=== PATIENT | male | born 1965 | race Caucasian/White ===

== ENCOUNTER 2020-04-03 07:38 | Inpatient (IN) | payer BC ==
[~2020-04-03] VITALS: Ht 177.8 cm; Wt 79.3 kg
[~2020-04-03 07:38] MED LIST: DELTASONE20 MG PO; LIPITOR20 MG PO; NORCO 10-325 T1 EACH PO; PERCOCET 5-3251 EACH PO
--- NOTE | 2020-04-04 06:18 | CONS ---
[facility] [address] [place], [place] [address] Signed DATE OF CONSULTATION: 04/03/2020 REFERRING PHYSICIAN: ER physician. CHIEF COMPLAINT: Right upper quadrant abdominal pain. HISTORY OF PRESENT ILLNESS: Yusuf is a 55-year-old gentleman who had undergone a screening colonoscopy back in 2017 by myself. We found just a minimal sigmoid diverticulosis. However about a year ago, he started developing some vague right upper quadrant abdominal pain. It has been getting progressively worse. He has been getting waves of crampy abdominal pain associated with some nausea. He finally came to emergency room for evaluation. 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 In the emergency room, he was tender in the right upper quadrant with unremarkable labs. The CT scan of the abdomen and pelvis was performed and he has an apple-core lesion in the distal right colon. No obvious lesions in the liver. Consequently, I was asked to admit him as a general surgeon on-call. PAST MEDICAL HISTORY: Minimal sigmoid diverticulosis and hypercholesterolemia. PAST SURGICAL HISTORY: Includes a colonoscopy in 2017, the right index finger partial amputation and appendectomy through a right paramedian incision and the right hip labral repair along with hemorrhoid surgery and a cervical disk fusion. SOCIAL HISTORY: He does not smoke, but he has occasional drink. He is to [place] at [phone]. 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 He prefers the [facility] here in [place], [place]. Dr. Fortunato Au is primary care provider. He has at least one daughter. FAMILY HISTORY: He is adopted and has no idea of his biologic family. REVIEW OF SYSTEMS: He had 10 systems reviewed and he told me about the right hip surgery that he had and he has been a year off work. He is with his today and she is in a wheelchair because her MS is getting worse. His daughter is also with him. ALLERGIES: Codeine. Electronically Signed By: NOY BHAGAT MD 04/04/20 0618 PATIENT NAME: YUSUF CRYSTAL CONSULTATION DATE OF : 63 REPORT #: [id number] PHYSICIAN: NOY BHAGAT MD PCP: FORTUNATO AU DO REPORT IS CONFIDENTIAL AND NOT TO BE RELEASED WITHOUT AUTHORIZATION [facility] [address] [place], [place] [address] Signed MEDICATIONS: Atorvastatin. PHYSICAL EXAMINATION: VITAL SIGNS: His blood pressure is 141/79, heart rate 64, respiratory rate 16, temperature is 98.0, he is 100% on room air. He is 5 feet 10 inches at 79 kg. GENERAL: Yusuf is a 55-year-old gentleman, who generally appears healthy and at his stated age. He is a good historian overall. His and daughter with him today. LUNGS: Clear to auscultation bilaterally. HEART: Regular rate and rhythm. ABDOMEN: Generally soft and flat, but he is tender in the right upper quadrant and I can feel the side of the mass to palpation. LABORATORY DATA: His white blood cell count is 7, hemoglobin 15, BUN 12, creatinine 1.0. Liver function tests negative. Troponin negative, albumin 4.2, lipase negative, COVID is pending. RADIOGRAPHIC STUDIES: The CT scan of the abdomen and pelvis is reviewed along with the report, one can easily see the dilated right colon and then apple-core lesion in the distal right colon. The liver does not appear to have any obvious lesions. Possible small lesion in the lung. ASSESSMENT/PLAN: Yusuf is a 55-year-old gentleman who presents with an apple-core lesion in his distal right colon. I reviewed this with Yusuf and his family in detail and of course most likely this is cancer. We are going to do our best to put him through our routine bowel prep today and repeat colonoscopy tomorrow. Mainly to rule out any synchronous lesions, but also to obtain some biopsies of that lesion in the distal right colon and then within the next day or two after that, he will need a formal right colectomy. He is very aware of colonoscopy along with its risks and benefits. He is aware of the need for sedation as well. We had also talked about the surgery in some detail as well. They have expressed understanding and agreed to above plan. Noy Bhagat MD ALB/MODL /[id number] Electronically Signed By: NOY BHAGAT MD 04/04/20 0618 PATIENT NAME: YUSUF CRYSTAL CONSULTATION DATE OF : 63 REPORT #: [id number] PHYSICIAN: NOY BHAGAT MD PCP: FORTUNATO AU DO REPORT IS CONFIDENTIAL AND NOT TO BE RELEASED WITHOUT AUTHORIZATION [address] [address] Signed cc: MD Fortunato Mae DO Copies: NOY BHAGAT MD, FRANK E DO ~ Electronically Signed By: NOY BHAGAT MD 04/04/20 0618 PATIENT NAME: YUSUF CRYSTAL CONSULTATION DATE OF : 63 REPORT #: [id number] PHYSICIAN: NOY BHAGAT MD PCP: FORTUNATO AU DO REPORT IS CONFIDENTIAL AND NOT TO BE RELEASED WITHOUT AUTHORIZATION
--- NOTE | 2020-04-05 06:41 | OR ---
[facility] [address] [place], [place] [address] Signed DATE OF OPERATION: 04/04/2020 SURGEON: Noy Bhagat MD PREOPERATIVE DIAGNOSES: 1. Unspecified mass, distal right colon. 2. Minimal sigmoid diverticulosis. POSTOPERATIVE DIAGNOSES: 1. Unspecified mass, distal right colon. 2. Minimal sigmoid diverticulosis. PROCEDURE: Colonoscopy with cold biopsies. ESTIMATED BLOOD LOSS: None. INDICATIONS: Yusuf is a 55-year-old gentleman, who came to us back in 2017 for a screening colonoscopy. He had a little diverticulosis at that time. 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 About a year ago, he started to develop right upper quadrant abdominal pain. There was some concern that could be the gallbladder; however, the pain was getting worse, and he was getting crampy waves of abdominal pain as well. It was getting worse after he ate. He finally came to the emergency room for evaluation yesterday. His laboratory work was not particularly concerning. The CT scan of the abdomen and pelvis showed an apple-core lesion in the distal right colon with unremarkable liver. I was asked to admit him as a general surgeon on-call. I met with Yusuf and his and his daughter yesterday, and we reviewed the above findings. We decided to repeat the colonoscopy since it has been three years to make sure there is no synchronous lesions distal to his apple-core lesion. He vomited up probably half the prep, but otherwise had multiple liquid bowel movements. This morning, I could tell on abdominal exam, his distention was gone and overall he is actually feeling better. He is fully aware of colonoscopy. He understands risks of colonoscopy including, but not limited to gas bloating, crampy abdominal pain, bleeding, perforation requiring surgery, and missed diagnosis. He had done well with Versed and fentanyl back in 2017. He had expressed understanding and wished to proceed. PROCEDURE NOTE: Electronically Signed By: NOY BHAGAT MD 04/05/20 0641 PATIENT NAME: YUSUF CRYSTAL OPERATIVE REPORT DATE OF : 63 REPORT #: [id number] PHYSICIAN: NOY BHAGAT MD PCP: MARCO AU DO REPORT IS CONFIDENTIAL AND NOT TO BE RELEASED WITHOUT AUTHORIZATION [facility] [address] [place] [id number] Signed Yusuf was taken into our endoscopy suite and placed in the left lateral decubitus position. He was given IV sedation with 5 mg of Versed and 125 mcg of fentanyl. A digital rectal exam was performed and this was unremarkable. The adult colonoscope was introduced and advanced under direct visualization of the camera. He did have some liquid particulate stool matter in the colon, but most of that was irrigated and suctioned out. There was just a few years we could see the completely. The scope passed readily, then around to the hepatic flexure. Again, we had to use some extra sedation and abdominal compression in order to advance the scope. As we came around hepatic flexure, then we could see his circumferential lesion. The opening in the lumen was too small to pass the colonoscope through. We took multiple pictures throughout for photodocumentation. We took several cold biopsies of the lesion for pathologic review. The scope was then slowly withdrawn. We found no other concerning lesions in the transverse, left or sigmoid colon. He does have a few small diverticula in the sigmoid colon. The rectum was unremarkable. Upon retroflexion of scope, we could see no additional pathology noted above the anal canal. After this, the gas was suctioned out, the colonoscope removed. Yusuf tolerated the procedure quite well. RECOMMENDATIONS: Yusuf will be returned to his hospital bed today on clear liquids. We will plan on doing his right colectomy either tomorrow or the next day. Noy Bhagat MD [facility]/MODL /[id number] cc: DO Noy Llamas MD Copies: MARCO AU ANDREW L MD ~ Electronically Signed By: NOY BHAGAT MD 04/05/20 0641 PATIENT NAME: YUSUF CRYSTAL OPERATIVE REPORT DATE OF : 63 REPORT #: [id number] PHYSICIAN: NOY BHAGAT MD PCP: MARCO AU DO REPORT IS CONFIDENTIAL AND NOT TO BE RELEASED WITHOUT AUTHORIZATION
--- NOTE | 2020-04-06 05:54 | OR ---
[facility] [facility] [address] [place], [place] [address] Signed DATE OF OPERATION: 04/05/2020 SURGEON: Noy Bhagat MD PREOPERATIVE DIAGNOSIS: Unspecified mass, right distal colon. POSTOPERATIVE DIAGNOSIS: Unspecified mass, mid right colon. PROCEDURE: Right colectomy with zipo-gc-cylk ileocolonic anastomosis, hand-sewn in two layers. ESTIMATED BLOOD LOSS: 250 mL. FINDINGS: Yusuf had a colonic mass in his mid right colon. It was not adherent to any other structures including abdominal wall or the retroperitoneum. No lesions seen or felt on the liver. No lesions felt or seen on the mesentery or omentum. INDICATIONS: Yusuf is a 55-year-old gentleman who came in 2017 for uncomplicated screening colonoscopy. He is known to have a little diverticulosis. He did undergo surgery on the right hip for torn labrum. It put him out of work for about a year. Over that year, he was having right upper quadrant abdominal pain that seemed to be getting progressively worse. However, he was also having crampy ways of abdominal pain associated with nausea. He knows it is worse when he was eating. There was some concern that could be his gallbladder. He finally came to emergency room for evaluation. In the emergency room, he was not systemically ill or toxic and his laboratory work was unremarkable. However, the CT scan showed an apple-core lesion in the distal right colon. The liver did not show any specific lesions. I have been asked to admit him as a general surgeon on-call. I met with Yusuf and his and daughter and reviewed the above findings. We put him through a bowel prep on the day of admission. The next day, we took him for a followup colonoscopy mainly to rule out any synchronous lesions in the distal colon. We encountered his circumferential mass in what we thought was the distal right colon. We had taken several biopsies for pathologic review along with pictures. We did not find any specific synchronous lesions distal in the transverse colon, left colon, sigmoid colon or rectum. Of course he does have minimal sigmoid diverticulosis. The following morning, then, we made arrangements Electronically Signed By: NOY BHAGAT MD 04/06/20 0554 PATIENT NAME: MARAHYUSUFMelissa ALARCON OPERATIVE REPORT DATE OF : 63 REPORT #: [id number] PHYSICIAN: NOY BHAGAT MD PCP: FORTUNATO AU DO REPORT IS CONFIDENTIAL AND NOT TO BE RELEASED WITHOUT AUTHORIZATION [facility] [address] [place] [address] Signed to bring him down to OR for standard right colectomy. I gave him a brochure on colorectal polyps and cancer. We looked at that carefully together. I reviewed with him the location of this tumor and the pictures associated with the right colectomy. I explained that we had to take all the blood vessels in the lymph nodes for pathologic review. In the meantime, his CEA level came back normal at 0.687. I reviewed with Yusuf the expected intraop and postop course. He understands there is risk to surgery including, but not limited to bleeding, infection, scarring, change in contour of the skin, damage to bowel, anastomotic leak, incisional hernias and other unforeseen comorbidities. He had expressed understanding and wished to proceed. PROCEDURE NOTE: I had met with Yusuf once again in our preop area. After answering his questions, he was taken in the operating room and placed in the supine position under general endotracheal tube anesthesia. He was given preoperative antibiotics. He was already on subcutaneous Lovenox. He had SCDs in place. A Lao catheter was inserted with return of clear yellow urine. He was then prepped and draped in the usual sterile fashion. On this occasion, I could not feel the mass after he was pharmacologically paralyzed. We utilized a standard periumbilical midline incision and carried that in the abdomen with the help of the cautery. We found a mass in the mid right colon, somewhat strictured, but not adherent to any surrounding structures including abdominal wall or the retroperitoneum. We did not see any lesions or feel any lesions on the liver. We did not see any lesions on the peritoneal surfaces nor the omentum. The omentum was not adherent to this lesion. He has undergone previous appendectomy through a right paramedian incision. There were no adhesions to that paramedian incision, but he had adhesions down around the terminal ileum and the cecum. It took a few extra minutes to get through those adhesions of the cautery and up the white line of Toldt and around the hepatic flexure over the midportion of the transverse colon. The entire specimen was rotated medially and up and out of the abdomen without difficulty. We divided the transverse colon midway between the hepatic flexure in the midportion of the transverse colon. This was done with a linear stapler. The mesocolon was divided between Pean clamps and 0 Vicryl ties. It took a little additional cautery to bring up the terminal ileum and the cecum from his previous adhesions from his remote appendectomy. We divided the terminal ileum between the linear stapler. On the last two Pean clamps, he had little bleeding. We oversewed that with 0 Vicryl suture. He developed a hematoma in the mesentery about the size of a tennis ball. That remained stable throughout the rest of the case. His terminal ileum also remained quite viable and well perfused and pink throughout the rest of the case. We passed the specimen off to our circulating nurse. It was opened on the back table for photodocumentation. We could easily see the ulcerated lesion in the mid right colon. After this, we closed the mesenteric rent with running 0 Vicryl suture. Because of the hematoma and his somewhat short mesentery due to his body habitus, we brought the ileum up to the transverse colon in a vncr-[id number]-dhzb fashion. We performed a standard two-layered anastomosis with Vicryl and silk sutures. Electronically Signed By: NOY BHAGAT MD 04/06/20 0554 PATIENT NAME: YUSUF CRYSTAL OPERATIVE REPORT DATE OF : 63 REPORT #: [id number] PHYSICIAN: NOY BHAGAT MD PCP: FORTUNATO AU DO REPORT IS CONFIDENTIAL AND NOT TO BE RELEASED WITHOUT AUTHORIZATION [facility] [address] [place], [place] [address] Signed We then inverted into the terminal ileum with a couple of silk sutures the staple line. Again, we checked the hematoma and it had not changed in size. The abdomen was then irrigated and suctioned out until clear. We were able to place the small bowel and colon back in the abdomen and it laid out quite nicely without any kinking. We brought the omentum back down over the bowel. The midline fascia was then closed with multiple interrupted #1 spyame-ls-phica PDS sutures. Local anesthetic was injected to the abdominal wall. The wound was irrigated and suctioned out until clear. We reapproximated the dermis with interrupted 3-0 subcuticular Monocryl sutures. The skin was then reapproximated with destiny. Dry gauze and tape were then applied. His Lao catheter was left in place. Yusuf was awakened from his anesthesia, extubated in the OR, and taken to recovery room in stable condition. Noy Bhagat MD ALB/MODL /[id number] cc: Fortunato Au DO Copies: FORTUNATO AU DO ~ Electronically Signed By: NOY BHAGAT MD 04/06/20 0554 PATIENT NAME: YUSUF CRYSTAL OPERATIVE REPORT DATE OF : 63 REPORT #: [id number] PHYSICIAN: NOY BHAGAT MD PCP: FORTUNATO AU DO REPORT IS CONFIDENTIAL AND NOT TO BE RELEASED WITHOUT AUTHORIZATION
--- NOTE | 2020-04-11 09:14 | PATH ---
[facility] [address] [facility] [place], [place] [address] Signed THIS IS AN ADDENDUM REPORT SPECIMEN(S): A ASCENDING COLON BIOPSY SPECIMEN SOURCE: A. ASCENDING COLON BIOPSY CLINICAL HISTORY: Apple core lesion, right colon; colon cancer. MICROSCOPIC DESCRIPTION: Histologic sections of all submitted blocks are examined by light microscopy. These findings, together with the gross examination, support the pathologic diagnosis. FINAL PATHOLOGIC DIAGNOSIS: Colon, ascending, biopsy: - Invasive adenocarcinoma, well differentiated. COMMENT: Screening for microsatellite instability by immunohistochemistry has been ordered and will be reported in an addendum. A diagnostic alert is initiated by Dr. Ibarra on April 10, 2020. As part of [facility]' Quality Improvement Program, this case was reviewed by another member of our pathology staff. BRP:NAL:smn:C1NR GROSS DESCRIPTION: The specimen, labeled "DR," and designated on the requisition "ascending colon biopsy," is received in formalin and consists of four fragments of pink-mccracken tissue (0.6 x 0.5 x 0.2 cm in aggregate). The specimen is submitted entirely in cassette (A1). AC (under the direct supervision of a pathologist) The Gross Description was prepared using a voice recognition system. The report was reviewed for accuracy; however, sound-alike word errors, addition and/or deletions may occur. If there is any question about this report, please contact Client Services. PERFORMING LABORATORY: The technical component was performed by [facility], [address] [place] [id number] (Pig Caster: Cristina Zhou MD; CLIA# [id number]). [facility] PATIENT NAME: YUSUF CRYSTAL PATHOLOGY DATE OF : 63 REPORT #: [id number] PHYSICIAN: THAOBkam PATHOLOGY PCP: MARCO AU DO REPORT IS CONFIDENTIAL AND NOT TO BE RELEASED WITHOUT AUTHORIZATION [facility] [address] [place] [id number] [place] [id number] [place] [address] (CLIA# [id number]). COMMENT: Tumor cells show no loss of nuclear expression of MMR proteins. This correlates with a low probability of microsatellite instability. However, if there is a high clinical suspicion for Alcocer syndrome (hereditary non-polyposis colorectal carcinoma syndrome) in this patient, additional testing should be considered. Please contact [facility] if such testing is indicated. BRP:vera ADDITIONAL NOTES: Immunohistochemical and/or in situ hybridization studies were performed on this case with the appropriate positive controls that react as expected. This test was developed and its performance characteristics determined by [facility]. It has not been cleared or approved by the U.S. Food and Drug Administration. The FDA has determined that such clearance or approval is not necessary. This test is used for clinical purposes. It should not be regarded as investigational or for research. [facility] is certified under the Clinical Laboratory Improvement Amendments of 1988 (CLIA) as qualified to perform high complexity clinical laboratory testing. REASON FOR ADDENDUM: To add results of additional testing. ADDENDUM FINAL PATHOLOGIC DIAGNOSIS: Adenocarcinoma, ascending colon, microsatellite instability testing by IHC: - MLH1: Intact nuclear expression. - MSH2: Intact nuclear expression. - MSH6: Intact nuclear expression. - PMS2: Intact nuclear expression. INTERPRETATION: Normal pattern. ADDENDUM MICROSCOPIC EXAMINATION: A panel of four antibodies is selected which will detect 95% of microsatellite unstable carcinomas. Block: A1. Recut HE slide is prepared from the block. The presence of neoplastic glands and non-neoplastic internal control glands or stroma is confirmed. Internal control cells for MLH1, MSH2, PMS2 and MSH6 are positive. PATIENT NAME: YUSUF CRYSTAL PATHOLOGY DATE OF : 63 REPORT #: [id number] PHYSICIAN: EUN PATHOLOGY PCP: MARCO AU DO REPORT IS CONFIDENTIAL AND NOT TO BE RELEASED WITHOUT AUTHORIZATION [facility] [address] [place], [place] [address] Signed Neoplastic gland cells show the following: - MLH1: Positive. - MSH2: Positive. - MSH6: Positive. - PMS2: Positive. Technical testing is performed at [facility], [place], [place]. Diagnostician: Jose Ibarra MD Pathologist Electronically Signed 04/11/2020 Copies: ~ PATIENT NAME: YUSUF CRYSTAL PATHOLOGY DATE OF : 63 REPORT #: [id number] PHYSICIAN: EUN JAUREGUI PCP: MARCO AU DO REPORT IS CONFIDENTIAL AND NOT TO BE RELEASED WITHOUT AUTHORIZATION
[2020-04-14] MEDS ORDERED: NORCO 5-325 TA1 EACH PO (07:48)
--- NOTE | 2020-04-14 08:46 | DS ---
[facility] [address] [place], [place] [address] Signed ADMISSION DATE: 04/03/2020 DISCHARGE DATE: 04/14/2020 FINAL DIAGNOSIS: Right colon cancer. PROCEDURES: 1. Colonoscopy with biopsies. 2. Right colectomy with hfgf-ze-focp hand-sewn anastomosis in two layers. 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 I performed his colonoscopy about three years ago. He came back at least a year of increasing right-sided crampy abdominal pain. In the emergency room, his laboratory work was unremarkable. However, the CT scan showed an apple-core lesion in the liver with an apple-core lesion in the right colon with an unremarkable liver. I admitted him to my service. HOSPITAL COURSE: We took Yusuf for colonoscopy the following day and we found the apple-core lesion consistent with the CT scan. He has minimal sigmoid diverticulosis. There were no synchronous lesions. Those endoscopic biopsies of come back adenocarcinoma. His CEA level was normal at 0.687. We took him to the operating room the following morning and underwent a standard right colectomy. We brought the bowel together nsyu-yi-dlym and hand-sewn anastomosis in two layers over about 3 cm. He also had just a small hematoma 3 or 4 cm in diameter in the small bowel mesentery of the terminal ileum as we were tying off the Pean clamps. That remained stable throughout the surgery. Consequently, we did not pursue it further. We did not resect additional bowel. Postoperatively, he began to regain his GI function. He had quite a bit crampy ways of abdominal pain. He was having gas and multiple liquid stools. It is possible that the anastomosis was a bit edematous. Last night especially he passed enormous amount of gas and he looks and feels much better. The abdomen is now minimally distended, quite soft, except for some tenderness in the right upper quadrant. He did drop his hemoglobin by 2 g. Consequently, we are going to recheck that this morning, but I think overall that is fine based on his clinical progress and his physical exam. The incision is healing fine. There are no local signs or symptoms of infection. At this point, he and I had a long discussion. He feels comfortable going home on his current soft diet. DISCHARGE PLANS AND MEDICATIONS: We will send Yusuf home with a small prescription for Compton 5 mg 1 tablet p.o. q.6 hours p.r.n. for severe pain. We will dispense 15 tablets with no refills. Otherwise, he can Electronically Signed By: NOY BHAGAT MD 04/14/20 0846 PATIENT NAME: YUSUF CRYSTAL DISCHARGE SUMMARY DATE OF : 63 REPORT #: [id number] PHYSICIAN: NOY BHAGAT MD PCP: FORTUNATO AU DO REPORT IS CONFIDENTIAL AND NOT TO BE RELEASED WITHOUT AUTHORIZATION [address] [address] Signed use some Tylenol or ibuprofen. He is welcome to resume his usual atorvastatin. He will stay on a soft diet for the next few weeks. One-half the destiny will be removed prior to discharge. I will see him back in the office in a week or so for followup and to remove the remaining destiny. In the meantime, he can perform his activities of daily living including walking up and down stairs and showering bathing as usual. He should not do any heavy pushing, pulling, or lifting over about 20 pounds. I reviewed this with Yusuf in detail. He has expressed understanding and agrees to above plan. Noy Bhagat MD ALB/MODL /[id number] cc: MD Fortunato Mae DO Copies: NOY BHAGAT MD, FRANK E DO ~ Electronically Signed By: NOY BHAGAT MD 04/14/20 0846 PATIENT NAME: YUSUF CRYSTAL DISCHARGE SUMMARY DATE OF : 63 REPORT #: [id number] PHYSICIAN: NOY BHAGAT MD PCP: FORTUNATO AU DO REPORT IS CONFIDENTIAL AND NOT TO BE RELEASED WITHOUT AUTHORIZATION
--- NOTE | 2020-04-14 09:43 | PATH ---
[facility] [address] [place], [place] [address] Signed SPECIMEN(S): A RIGHT COLON SPECIMEN SOURCE: A. RIGHT COLON CLINICAL HISTORY: Colon cancer (apple core lesion) FINAL PATHOLOGIC DIAGNOSIS: Ascending colon, cecum and terminal ileum, right hemicolectomy: - Invasive colonic adenocarcinoma with the following features: - Tumor site: Ascending colon - Tumor size: 3.2 x 2.6 x 1.7 cm. - Macroscopic tumor perforation: Not identified. - Histologic type: Adenocarcinoma. - Histologic grade: G2: Moderately differentiated. - Tumor extension: Tumor invades through the muscularis propria into pericolorectal tissue. - Margins: All margins are uninvolved by invasive carcinoma, high-grade dysplasia, intramucosal carcinoma and low-grade dysplasia (proximal, distal and radial margins). - Lymphovascular invasion: Present. - Perineural invasion: Not identified. - Tumor deposits: Present, 1 tumor deposit. - Regional lymph nodes: - Number of lymph nodes involved: 3 - Number of lymph nodes examined: 56 - Microsatellite Instability (MSI) Testing by Immunohistochemistry: Refer to previously performed testing ([id number], 04/04/2020), interpreted as Normal Pattern with the following expression pattern: - MLH1: Intact nuclear expression. - MSH2: Intact nuclear expression. - MSH6: Intact nuclear expression. - PMS2: Intact nuclear expression. - Pathologic stage classification (pTNM, AJCC 8th ed.): pT3 pN1b. - Ileum with thickened and congested subserosa. COMMENT: As part of [employer]' Quality Improvement Program, selected slides PATIENT NAME: YUSUF CRYSTAL PATHOLOGY DATE OF : 63 REPORT #: [id number] PHYSICIAN: EUN PATHOLOGY PCP: MARCO AU DO REPORT IS CONFIDENTIAL AND NOT TO BE RELEASED WITHOUT AUTHORIZATION [facility] [address] [place] [id number] Signed from this case were reviewed by another member of our pathology staff. BRAF mutation testing has not been ordered. If testing is desired, please contact [employer] with prior authorization if applicable. NAL:vlg:C1NR MICROSCOPIC EXAMINATION: Histologic sections of all submitted blocks are examined by light microscopy. These findings, together with the gross examination, support the pathologic diagnosis. GROSS DESCRIPTION: The specimen, labeled "Carine CHUNG," and designated on the requisition "right colon, colon cancer (apple core lesion)," is received in formalin and consists of a previously opened, 16.5 cm long, up to 9.3 cm diameter colonic segment with attached terminal ileum and adipose tissue up to 11.5 cm wide. An appendix or grossly definitive appendiceal orifice is not identified. The distal colon contains a 4.2 cm long staple line which is removed and the underlying tissue is inked blue. The proximal terminal ileum is closed by a 2.8 cm long staple line, edges removed and the underlying tissue is inked orange. The colonic serosa is mccracken, glistening, with focal, rare delicate adhesions. On the colonic mucosa contains an ill-defined, fungating, centrally ulcerative, 3.2 x 2.6 x 1.7 cm, mccracken to brown to red lesion that is 3.1 cm from the ileocecal valve, 9.2 cm from the distal colonic margin, 12.5 cm from the radial/vascular root margin which is inked red, and 15.8 cm from the proximal terminal ileum. The lesion grossly appears to invade through the mucosa, submucosa, muscularis, and into the attached adipose tissue up to 0.6 cm. The remaining colonic mucosa is slightly edematous, mccracken, and has usual folds. An additional discrete mass/lesion is not grossly identified. The terminal ileum is 12.5 cm long, 4.8 cm in circumference, and the serosa is mccracken, smooth and glistening. The terminal ileum mucosa is mccracken with usual folds and focally edematous. A discrete mass/lesion is not grossly identified. The attached adipose tissue is removed, sectioned, and palpated for lymph nodes. Sixty pink-mccracken lymph node candidates from 0.2 up to 3.0 cm in greatest dimension are found. Represented sections are submitted as follows: (A1-A2) radial/vascular margin en face PATIENT NAME: YUSUF CRYSTAL PATHOLOGY DATE OF : 63 REPORT #: [id number] PHYSICIAN: EUN JAUREGUI PCP: MARCO AU DO REPORT IS CONFIDENTIAL AND NOT TO BE RELEASED WITHOUT AUTHORIZATION [facility] [address] [place], [place] [address] Signed (A3-A4) distal colonic margin en face (A5) proximal terminal ileum margin en face (A6-A7) lesional invasion into attached adipose tissue (A8-A9) lesion to normal mucosa (A10) lesion (A11) remaining colonic mucosa (A12) ileocecal valve (A13) terminal ileum (A14) 5 lymph node candidates in toto (A15) 5 lymph node candidates in toto (A16) 5 lymph node candidates in toto (A17) 5 lymph node candidates in toto (A18) 5 lymph node candidates in toto (A19) 5 lymph node candidates in toto (A20) 5 lymph node candidates in toto (A21) 5 lymph node candidates in toto (A22) 4 lymph node candidates in toto (A23) 4 lymph and candidates in toto (A24) 4 lymph and candidates in toto (A25) 3 lymph node candidates in toto (A26) 2 lymph node candidates in toto (A27) one bivalved lymph node candidate (A28-A29) one bivalved lymph node candidate (A30-A32) one cross-sectioned lymph node candidate (possibly two lymph node candidates connected with fibrous tissue) AI (under the direct supervision of a pathologist) Per request by Dr. Evans, the case is revisited. The radial margin of the retroperitoneal non-peritonealized posterior surface is inked green and two construction sales representative sections of the lesion to the margin are submitted in two cassettes ( A33-A34) AI 04/12/20 12:17 The Gross Description was prepared using a voice recognition system. The report was reviewed for accuracy; however, sound-alike word errors, addition and/or deletions may occur. If there is any question about this report, please contact Client Services. PERFORMING LABORATORY: The technical component was performed by [employer], [address] [place] [id number] (Parts Casting Machine Operator: Cristina Zhou MD; CLIA# [id number]). Professional interpretation was performed by [employer], [facility], [address] [place] [address] [facility]. 107, PATIENT NAME: YUSUF CRYSTAL PATHOLOGY DATE OF : 63 REPORT #: [id number] PHYSICIAN: EUN PATHOLOGY PCP: MARCO AU DO REPORT IS CONFIDENTIAL AND NOT TO BE RELEASED WITHOUT AUTHORIZATION [facility] [address] [place] [address] [place] [id number] Signed [place] [id number] (CLIA# [id number]). Diagnostician: Shawna Evans MD Pathologist Electronically Signed 04/14/2020 Copies: ~ PATIENT NAME: YUSUF CRYSTAL PATHOLOGY DATE OF : 63 REPORT #: [id number] PHYSICIAN: EUN PATHOLOGY PCP: MARCO AU DO REPORT IS CONFIDENTIAL AND NOT TO BE RELEASED WITHOUT AUTHORIZATION
== END 2020-04-14 09:20 | disposition home or self-care (01) | DRG 330 ==
LOC: ED 07:38 → MS 07:40 → ED 11:00 → MS 11:00
PROVIDERS: ADMIT Colon & Rectal Surgery; ATTEND Colon & Rectal Surgery
PROC: 0DBF8ZX Excision of Right Large Intestine, Via Natural or Artificial Opening Endoscopic, Diagnostic (ICD-10-PCS; principal; 2020-04-04 10:45)
PROC: 0DTF0ZZ Resection of Right Large Intestine, Open Approach (ICD-10-PCS; 2020-04-05)
DX: C18.2 Malignant neoplasm of ascending colon (principal); K56.7 Ileus, unspecified; Z20.822 Contact with and (suspected) exposure to COVID-19; K57.30 Diverticulosis of large intestine without perforation or abscess without bleeding; Z79.899 Other long term (current) drug therapy; Z88.5 Allergy status to narcotic agent
CPT/HCPCS: 36415; 74018; 74177; 80048; 80053; 82378; 83690; 83735; 84100; 84484; 85025; 93005; 93010; 96374; 96375; 99153; 99285-25; 99406; C9113; G0378; G0500; J0131; J0330; J0690; J1100; J1170; J1650; J1885; J2250; J2270; J2405; J2550; J2704; J2765; J3010; J3480; J7060; J7121; Q9967; U0003

== ENCOUNTER 2020-05-10 07:25 | Day surgery (SDC) | payer BC ==
[~2020-05-10] VITALS: Ht 177.8 cm; Wt 72.7 kg
[~2020-05-10 07:25] MED LIST changes: +NORCO 5-325 TA1 EACH PO
--- NOTE | 2020-05-10 10:27 | NUR ---
05/10/20 Vibha7 Stacy Bey 1022-PATIENT ARRIVED TO PACU SLEEPING NONAROUSABLE ON 6L MASK RR EVEN. DRESSING TO RIGHT NECK CDI RIGHT CHEST DRESSING CDI. ST. IVF INFUSING.
[2020-05-10] MEDS ORDERED: HYDROCODON-ACE1 EAC8 PO (10:49)
--- NOTE | 2020-05-11 07:57 | OR ---
[facility] [address] [place], [place] [address] Signed DATE OF OPERATION: 05/10/2020 SURGEON: Noy Bhagat MD PREOPERATIVE DIAGNOSES: 1. Personal history of stage III colon cancer. 2. Status post right colectomy. POSTOPERATIVE DIAGNOSES: 1. Personal history of stage III colon cancer. 2. Status post right colectomy. PROCEDURES: 1. Placement of right IJ Fqjp-F-onogjmif. 2. Physician directed ultrasound. 3. Physician directed fluoroscopy. ESTIMATED BLOOD LOSS: None. INDICATIONS: Yusuf is a 55-year-old gentleman, who came to us previously with his stage 3 right-sided colon cancer. He required a right colectomy. He has met with his medical oncologist and is planning on chemotherapy. He therefore is in need of a Vbiz-I-sssnmmuh placement. I had met with Yusuf and his in the office. We had reviewed Ppkf-G-npqcanono in detail. His is familiar with Hxbk-Q-lkdatdszn from her friends. There is risk to that surgery including, but not limited to bleeding, infection, scarring, change in contour of the skin, pneumothorax requiring chest tube placement, as well as catheter embolization requiring retrieval. They had expressed understanding and wished to proceed. DESCRIPTION OF PROCEDURE: I met with Yusuf and his in our preop area. After answering the questions, we went back in our operating room. He was placed under monitored anesthesia care. He was put in the Trendelenburg position. He was given preoperative antibiotics along with subcutaneous heparin. SCDs were utilized. He was then prepped and draped in the usual sterile fashion. We used the ultrasound and we could easily visualize his right internal jugular vein. We injected local anesthetic and passed the needle directly into the internal jugular vein under direct visualization. The wire was able to be inserted without resistance and we checked the position of the wire with a fluoroscopy unit. We Electronically Signed By: NOY BHAGAT MD 05/11/20 0757 PATIENT NAME: YUSUF CRYSTAL OPERATIVE REPORT DATE OF : 63 REPORT #: [id number] PHYSICIAN: NOY BHAGAT MD PCP: MARCO AU DO REPORT IS CONFIDENTIAL AND NOT TO BE RELEASED WITHOUT AUTHORIZATION [facility] [address] [place], [place] [address] Signed then injected local underneath the skin down the neck and onto the right chest wall. A pocket was created on the right chest wall with the help of the cautery and Pean clamps. We then dilated over the wire and checked the position of the dilator with our fluoroscopy unit. The catheter was then inserted up to 14 cm at the level of the neck. The position of the catheter was checked with the fluoroscopy unit. We then tunneled the catheter underneath the skin out onto the chest wall. The catheter was cut the length and placed onto the hub. The catheter was able to flush and draw quite readily. We filled the catheter with 2 mL of concentrated heparin. The hub was held on the chest wall with interrupted Prolene sutures. The dermis was reapproximated with 3-0 subcuticular Monocryl sutures. We used a 5-0 Monocryl for the dermis on the neck. We used 5-0 fast absorbing plain gut suture to close the skin on the neck and the chest wall. The entire length of the catheter was checked once again and found to be satisfactory. Dry gauze and tape were then applied. Yusuf was transferred over to his hospital bed and taken into recovery room in stable condition. Noy Bhagat MD ALB/MODL /[id number] cc: DO James Llamas MD Andrew L Bower, MD Copies: MARCO AU ROBERT C MD BOWER, ANDREW L MD ~ Electronically Signed By: NOY BHAGAT MD 05/11/20 0757 PATIENT NAME: YUSUF CRYSTAL OPERATIVE REPORT DATE OF : 63 REPORT #: [id number] PHYSICIAN: NOY BHAGAT MD PCP: MARCO AU DO REPORT IS CONFIDENTIAL AND NOT TO BE RELEASED WITHOUT AUTHORIZATION
== END 2020-05-10 11:20 | disposition home or self-care (01) ==
LOC: DS 07:25
PROVIDERS: ATTEND Colon & Rectal Surgery
PROC: 02HV33Z Insertion of Infusion Device into Superior Vena Cava, Percutaneous Approach (ICD-10-PCS; 2020-05-10)
PROC: 0JH60WZ Insertion of Totally Implantable Vascular Access Device into Chest Subcutaneous Tissue and Fascia, Open Approach (ICD-10-PCS; principal; 2020-05-10 08:15)
DX: C18.2 Malignant neoplasm of ascending colon (principal); C77.2 Secondary and unspecified malignant neoplasm of intra-abdominal lymph nodes; E78.5 Hyperlipidemia, unspecified; F17.220 Nicotine dependence, chewing tobacco, uncomplicated; Z90.49 Acquired absence of other specified parts of digestive tract; Z88.5 Allergy status to narcotic agent; Z98.1 Arthrodesis status
CPT/HCPCS: 00532; 71045; 77001; C1788; J0690; J1100; J1644; J1885; J2001; J2250; J2405; J2704; J7121

== ENCOUNTER 2020-05-12 14:58 | Emergency (ER) | payer BC ==
[~2020-05-12] VITALS: Ht 177.8 cm; Wt 72.7 kg
[~2020-05-12 14:58] MED LIST changes: +HYDROCODON-ACE1 EAC8 PO
--- OUTSIDE RECORDS SUMMARY | 2020-05-12 15:00 | XMS ---
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 Kobe has no Care Guidelines for this patient. Higinio VISIT COUNT (12 MO.) 2 LEO Guevara TOTAL 2 NOTE: Visits indicate total known visits. ED/UCC VISIT TRACKING (12 MO.) 05/12/2020 14:58 [facility] [place] TYPE: Emergency COMPLAINT: - CONSTIPATION 04/03/2020 07:39 [facility] [place] TYPE: Emergency COMPLAINT: - COLON CANCER INPATIENT VISIT TRACKING (12 MO.) 04/03/2020 12:50 [facility] [place] TYPE: Medical Surgical COMPLAINT: - UNSPECIFIED COLON MASS DIAGNOSES: - Right upper quadrant pain - Ileus, unspecified - Other prison (current) drug therapy - Malignant neoplasm of ascending colon - Allergy status to narcotic agent - Diverticulosis of large intestine without perforation or abscess without bleeding [email or web address]
== END 2020-05-12 16:58 | disposition home or self-care (01) ==
LOC: ED 14:58
DX: K59.00 Constipation, unspecified (principal); E78.5 Hyperlipidemia, unspecified; Z88.5 Allergy status to narcotic agent; Z79.899 Other long term (current) drug therapy; Z85.038 Personal history of other malignant neoplasm of large intestine
CPT/HCPCS: 74018; 80053; 85025; 96374; 99284-25; J1885

== ENCOUNTER 2020-07-21 14:17 | Emergency (ER) | payer BC ==
[~2020-07-21] VITALS: Ht 177.8 cm; Wt 80.9 kg
[2020-07-21] MEDS ORDERED: CEPHALEXIN500 M1 PO (16:37)
== END 2020-07-21 17:00 | disposition home or self-care (01) ==
LOC: ED 14:17
DX: S81.012A Laceration without foreign body, left knee, initial encounter (principal); E78.5 Hyperlipidemia, unspecified; Z88.5 Allergy status to narcotic agent; Z79.899 Other long term (current) drug therapy; Z85.038 Personal history of other malignant neoplasm of large intestine; W29.3XXA Contact with powered garden and outdoor hand tools and machinery, initial encounter
CPT/HCPCS: 12034; 73560; 73562; 90471; 90715; 99283-25

== ENCOUNTER 2020-11-24 07:35 | Day surgery (SDC) | payer BC ==
[~2020-11-24] VITALS: Ht 177.8 cm; Wt 73.0 kg
[~2020-11-24 07:35] MED LIST changes: +CEPHALEXIN500 M1 PO
--- NOTE | 2020-11-24 10:14 | NUR ---
11/24/20 1014 Sheets,Ella 1006 PT ARRVIED TO PACU ON 6L VIA MASK, VSS. PT ASLEEP AND LARGE AMOUNT OF SNORING NOTED. 1011 PT REACTIVE TO TACTILE STIMULI.
--- NOTE | 2020-11-24 12:04 | OR ---
[facility] [address] [place], [place] [address] Signed DATE OF OPERATION: 11/24/2020 SURGEON: Noy Bhagat MD PREOPERATIVE DIAGNOSES: 1. Personal history of stage III colon cancer, 04/05/2020. 2. Right internal jugular uymi-E-eqzhsrea. POSTOPERATIVE DIAGNOSES: 1. Personal history of stage III colon cancer, 04/05/2020. 2. Right internal jugular fhiq-F-nowqzegm. PROCEDURE: Removal right IJ ypvx-I-sbyxiagx. ESTIMATED BLOOD LOSS: None. INDICATIONS: Yusuf is a 55-year-old gentleman who underwent his right colectomy on April 06, 2020 for stage III colon cancer. He is now finished his chemotherapy. He returns to have a dvav-B-xkqhuxjj removed. In the office, I explained to him the nature of the removal. He understands there is risk including, but not limited to bleeding, infection, scarring, change in contour of the skin as well as air embolization. He had expressed understanding and wished to proceed. DESCRIPTION OF PROCEDURE: I met with Yusuf and his in our preop area. We marked the catheter appropriately. After this, Yusuf was taken in the operating room and placed in the supine position under monitored anesthesia care. He was given preoperative antibiotics along with subcutaneous heparin. SCDs were utilized. His right neck and chest wall were prepped and draped in the usual sterile fashion. Local anesthetic was copiously injected in and around underneath the catheter. We utilized his previous transverse incision and opened it sharply with a 15 blade knife. We went down around the catheter bluntly and with the help of the cautery. The entire pseudocapsule was removed along with the catheter hub. The catheter slid without any resistance whatsoever. We could see the catheter was intact all the way out to the tip. We used a 2-0 Prolene suture to pursestring the catheter tunnel with good hemostasis. The wound was then irrigated and suctioned out until clear. We brought the dermis back together with interrupted 3-0 subcuticular Monocryl sutures. The skin edges were reapproximated with a running 5-0 fast absorbing Electronically Signed By: NOY BHAGAT MD 11/24/20 1204 PATIENT NAME: YUSUF CRYSTAL OPERATIVE REPORT DATE OF : 63 REPORT #: [id number] PHYSICIAN: NOY BHAGAT MD PCP: FORTUNATO AU DO REPORT IS CONFIDENTIAL AND NOT TO BE RELEASED WITHOUT AUTHORIZATION [address] [address] Signed plain gut suture. Dry gauze and tape were then applied. Yusuf was then rotated over to his hospital bed and taken into recovery room in stable condition. MD ANTONETTE Mae/KHADIJAHL /[id number] cc: MD Fortunato Mae DO Robert C Quackenbush, MD Copies: NOY BHAGAT MD, FRANK E DO QUACKENBUSH,KOSTA C MD ~ Electronically Signed By: NOY BHAGAT MD 11/24/20 1204 PATIENT NAME: YUSUF CRYSTAL OPERATIVE REPORT DATE OF : 63 REPORT #: [id number] PHYSICIAN: NOY BHAGAT MD PCP: FORTUNATO AU DO REPORT IS CONFIDENTIAL AND NOT TO BE RELEASED WITHOUT AUTHORIZATION
== END 2020-11-24 11:06 | disposition home or self-care (01) ==
LOC: DS 07:35 → OPS 07:35 → DS 08:10 → OPS 08:45 → DS 12-13 06:45
PROVIDERS: ATTEND Colon & Rectal Surgery
PROC: 0JPV3WZ Removal of Totally Implantable Vascular Access Device from Upper Extremity Subcutaneous Tissue and Fascia, Percutaneous Approach (ICD-10-PCS; principal; 2020-11-24 08:45)
DX: Z08 Encounter for follow-up examination after completed treatment for malignant neoplasm (principal); E78.5 Hyperlipidemia, unspecified; F17.220 Nicotine dependence, chewing tobacco, uncomplicated; Z88.5 Allergy status to narcotic agent; Z85.038 Personal history of other malignant neoplasm of large intestine
CPT/HCPCS: 00532; J0690; J1644; J2001; J2405; J2704; J3010; J7121

== ENCOUNTER 2021-02-13 11:19 | Emergency (ER) | payer BC ==
[~2021-02-13] VITALS: Ht 177.8 cm; Wt 70.5 kg
--- OUTSIDE RECORDS SUMMARY | 2021-02-13 11:26 | XMS ---
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 Higinio VISIT COUNT (12 MO.) 5 LEO Guevara TOTAL 5 NOTE: Visits indicate total known visits. 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 - Contact with powered garden and outdoor hand tools and machinery, initial encounter - Encounter for immunization 05/12/2020 14:58 [facility] [place] TYPE: Emergency COMPLAINT: - CONSTIPATION DIAGNOSES: - Unspecified abdominal pain - Other [facility] drug therapy - Hyperlipidemia, unspecified - Allergy status to narcotic agent - Personal history of other malignant neoplasm of large intestine - Constipation, unspecified 04/03/2020 07:39 [facility] [place] TYPE: Emergency COMPLAINT: - COLON CANCER INPATIENT VISIT TRACKING (12 MO.) 04/03/2020 12:50 [facility] [place] TYPE: Medical Surgical COMPLAINT: - UNSPECIFIED COLON MASS DIAGNOSES: - Right upper quadrant pain - Ileus, unspecified - 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
[2021-02-13] MEDS ORDERED: PREDNISONE20 MG PO (13:35)
[2021-02-13] MEDS ORDERED: HYDROCODON-ACE1 EA10 PO (13:44)
== END 2021-02-13 13:50 | disposition home or self-care (01) ==
LOC: ED 11:19
DX: M10.9 Gout, unspecified (principal); E78.5 Hyperlipidemia, unspecified; Z88.5 Allergy status to narcotic agent; Z79.899 Other long term (current) drug therapy
CPT/HCPCS: 73630; 99283-25; J7512

== ENCOUNTER 2021-03-13 06:26 | Day surgery (SDC) | payer BC ==
[~2021-03-13] VITALS: Ht 177.8 cm; Wt 74.8 kg
[~2021-03-13 06:26] MED LIST changes: +DECADRON4 MG PO; +HYDROCODON-ACE1 EA10 PO; +LEUCOVORIN CALC INJ; +LOMOTIL TABLET1 EACH PO; +ONDANSETRON ODT8 MG PO; +OXALIPLATIN100 MG IV; +PREDNISONE20 MG PO; +TYLENOL325 MG PO
--- NOTE | 2021-03-13 08:09 | NUR ---
03/13/21 0809 Naheed Lewis 0759 - RECIEVED PT TO PACU. PT ON 2 LITERS NC TURNED OFF ON ARRIVAL. RESPIRATIONS ARE EVEN AND UNLABORED. RESPONDS TO VERBAL STIMULI. PT PASSING GAS.
--- NOTE | 2021-03-13 13:36 | NUR ---
PT IS ALERT, ORIENTED AND SOMEWHAT ANXIOUS-THIS IS FIRST SCOPE SINCE THE COMPLETION OF HIS CHEMO. GAVE ENCOURAGEMENT, PT HOPES TO RETURN BACK TO WORK LATER THIS MONTH. HAD PRAYER WITH PT, HIS RENEE WILL BE HERE FOLLOWING DC. WILL FOLLOW NEEDED
--- NOTE | 2021-03-13 17:16 | OR ---
[facility] [address], [place] [address] Signed DATE OF OPERATION: 03/13/2021 SURGEON: Noy Bhagat MD PREOPERATIVE DIAGNOSES: 1. Stage III right colon cancer in March 2020. 2. Diverticulosis. POSTOPERATIVE DIAGNOSES: 1. Sigmoid diverticula x2. 2. Ileocolonic anastomosis at 110 cm. 3. 7 mm sessile polyp at 25 cm (distal sigmoid). 4. Minimal to moderate internal hemorrhoids. PROCEDURE: Colonoscopy with hot biopsy. ESTIMATED BLOOD LOSS: None. INDICATIONS: Yusuf is a 56-year-old gentleman, who was asked to see me for a followup colonoscopy. He had an unremarkable screening colonoscopy back in 2016 at the age of 51. At that time, he had sigmoid diverticulosis, but no polyps. He later developed crampy right-sided abdominal pain and went to the emergency room in March of 2020 at the age of 55. He had a lesion in his right mid colon. This was confirmed by colonoscopy with myself. He had minimal sigmoid diverticulosis at that time. We did not see any other polyps. I performed his right colectomy on 04/05/2020 for his stage III right colon cancer. He has a rcfz-br-lppb ileocolonic anastomosis in the proximal transverse colon. He has completed his chemotherapy. He has come back now for followup colonoscopy. He is adopted and has no knowledge of his family history. In the meantime, he said he is feeling better and started to gain some weight. He thinks he will be going back to work here in about a week or so. In the office, I gave Yusuf a pamphlet on colonoscopy. We reviewed the nature of the test. He understands there is risk including, but not limited to gas bloating, crampy abdominal pain, bleeding, perforation requiring surgery, and missed diagnosis. He recalls the need for IV conscious sedation. He has done well with Versed and fentanyl in the past. He expressed understanding and wished to proceed. PROCEDURE NOTE: Yusuf was taken into our endoscopy suite and placed in the left lateral decubitus Electronically Signed By: NOY BHAGAT MD 03/13/21 1716 PATIENT NAME: YUSUF CRYSTAL OPERATIVE REPORT DATE OF : 63 REPORT #: [id number] PHYSICIAN: NOY BHAGAT MD PCP: FORTUNATO AU DO REPORT IS CONFIDENTIAL AND NOT TO BE RELEASED WITHOUT AUTHORIZATION [facility] [address], [place] [address] Signed position. He was given a total of 5 mg of Versed and 100 mcg of fentanyl to cover the case. A digital rectal exam was performed and he has good sphincter tone. Prostate is a little indurated, but not overly enlarged. The adult colonoscope was introduced and advanced under direct visualization of the camera. It took just a little extra sedation in order to get the camera up to the anastomosis in the proximal transverse colon at 110 cm. The anastomosis was quite healthy. No evidence of any recurrent cancer. The terminal ileum was quite healthy as well. His prep was quite excellent. The scope was then slowly withdrawn. We saw just two diverticula in the sigmoid colon. They were moderate in size. At 25 cm in the distal sigmoid colon, he had a 7 mm sessile polyp. It was easily removed with several bites of hot biopsy forceps. The rectum itself was unremarkable. The scope had been retroflexed and he has minimal to moderate internal hemorrhoid columns. After this, the gas was suctioned out and colonoscope removed. Yusuf tolerated the procedure quite well. RECOMMENDATIONS: I will see Yusuf back in my office in 7 to 10 days to review his results. It looks like he will stay on one year rotation. Noy Bhagat MD ALB/MODL /[id number] cc: MD James Mae, MD Fortunato Au DO Copies: NOY BHAGAT MD,FORTUNATO WALSH MD, DO ~ Electronically Signed By: NOY BHAGAT MD 03/13/21 1716 PATIENT NAME: YUSUF CRYSTAL OPERATIVE REPORT DATE OF : 63 REPORT #: [id number] PHYSICIAN: NOY BHAGAT MD PCP: FORTUNATO AU DO REPORT IS CONFIDENTIAL AND NOT TO BE RELEASED WITHOUT AUTHORIZATION
--- NOTE | 2021-03-14 17:21 | PATH ---
[facility] [address] [place], [place] [address] Signed SPECIMEN(S): A COLON POLYP AT 25 CM SPECIMEN SOURCE: A. COLON POLYP AT 25 CM CLINICAL HISTORY: Personal history of colon cancer; diverticulosis; internal hemorrhoids; colon polyps MICROSCOPIC DESCRIPTION: Histologic sections of all submitted blocks are examined by light microscopy. These findings, together with the gross examination, support the pathologic diagnosis. FINAL PATHOLOGIC DIAGNOSIS: Colon, 25 cm, polypectomy: - Multiple fragments of tubular adenoma. - There is no evidence of high-grade dysplasia or malignancy. TWK:caw:C2NR GROSS DESCRIPTION: The specimen, labeled "Mick, Yusuf, 1," and designated on the requisition "colon polyp 25 cm," is received in formalin and consists of seven mccracken soft tissue fragments that measure 0.1 to 0.4 cm in greatest dimension. The specimen is entirely submitted in cassette (A1). FB (under the direct supervision of a pathologist) The Gross Description was prepared using a voice recognition system. The report was reviewed for accuracy; however, sound-alike word errors, addition and/or deletions may occur. If there is any question about this report, please contact Client Services. PERFORMING LABORATORY: The technical component was performed by [employer], [address] [place] [id number] (Coat Tailor: Cristina Zhou MD; CLIA# [id number]). [facility], [address] [address] (CLIA# [id number]). Diagnostician: Shadi Torres MD Pathologist Electronically Signed 03/14/2021 PATIENT NAME: YUSUF CRYSTAL PATHOLOGY DATE OF : 63 REPORT #: [id number] PHYSICIAN: [facility] PCP: MARCO AU DO REPORT IS CONFIDENTIAL AND NOT TO BE RELEASED WITHOUT AUTHORIZATION [address] [address] Signed Copies: ~ PATIENT NAME: YUSUF CRYSTAL PATHOLOGY DATE OF : 63 REPORT #: [id number] PHYSICIAN: [facility] PCP: MARCO AU DO REPORT IS CONFIDENTIAL AND NOT TO BE RELEASED WITHOUT AUTHORIZATION
== END 2021-03-13 09:35 | disposition home or self-care (01) ==
LOC: OPS 06:26 → DS 06:45 → OPS 09:35
PROVIDERS: ATTEND Colon & Rectal Surgery
PROC: 0DBN8ZZ Excision of Sigmoid Colon, Via Natural or Artificial Opening Endoscopic (ICD-10-PCS; principal; 2021-03-13 06:45)
DX: Z08 Encounter for follow-up examination after completed treatment for malignant neoplasm (principal); D12.5 Benign neoplasm of sigmoid colon; K57.30 Diverticulosis of large intestine without perforation or abscess without bleeding; K64.8 Other hemorrhoids; Z85.038 Personal history of other malignant neoplasm of large intestine; Z90.49 Acquired absence of other specified parts of digestive tract; E78.5 Hyperlipidemia, unspecified
CPT/HCPCS: 99153; G0500; J2250; J3010; J7121

== ENCOUNTER 2022-05-07 07:03 | Day surgery (SDC) | payer BC ==
[~2022-05-07] VITALS: Ht 182.9 cm; Wt 77.1 kg
--- NOTE | 2022-05-07 09:01 | NUR ---
05/07/22 0901 Stacy Bey 0759-PATIENT ARRIVED TO PACU ON RA RR EVEN. PATIENT REACTIVE TO VERBAL STIMULI REMAINS VERY DROWSY. DENIES PAIN OR NAUSEA. LAYING LEFT LATERAL ABDOMEN SOFT IVF INFUSING
--- NOTE | 2022-05-07 09:53 | OR ---
[facility] [address] [place], [place] [address] Signed DATE OF OPERATION: 05/07/2022 SURGEON: Noy Bhagat MD PREOPERATIVE DIAGNOSES: 1. Stage III right colon cancer age 55 in 2019. 2. Ileocolonic anastomosis at 110 cm (side-side). 3. Minimal internal hemorrhoids. 4. Personal history of colonic polyps in 2020 at age 56. POSTOPERATIVE DIAGNOSES: 1. Minimal sigmoid diverticulosis. 2. Biopsies of the ileocolonic anastomosis at 110 cm and clips x2. PROCEDURE: Colonoscopy with hot biopsy and a clip x2. ESTIMATED BLOOD LOSS: Minimal. INDICATIONS: Yusuf is a 57-year-old gentleman, who 1st came in 2017 at age of 51 for his screening colonoscopy. He had just a few diverticula in the sigmoid colon. He always does well with Versed and fentanyl. We asked him to come back in 10 years for repeat colonoscopy. He said he is adopted and has no knowledge of his family history. He came in the hospital in March of 2020 at age of 55 with right-sided abdominal pain. He had a nearly obstructing right colon cancer. Again, a few diverticula in the sigmoid colon. We did his right colectomy and he had 3/56 lymph nodes with tumor and he had one tumor deposit in the mesentery. Consequently, he was a stage III colon cancer. 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 I helped him with a repeat colonoscopy in 2019 at the age of 56. His anastomosis is well healed up at 110 cm. This happens to be a vzal-nl-owum anastomosis. Again, he has a few diverticula in the sigmoid colon. Very little in the way of any internal hemorrhoid tissue. He had a small adenomatous polyp taken out of the left colon. He came back in a year and presents for his followup colonoscopy. He said he is doing fine. He is eating well and having good bowel movements. He has been able to gain a little bit of his weight back. In the office, I gave him a pamphlet on colonoscopy and he recalls the test well. He knows there is risk including, but not limited to gas bloating, crampy abdominal pain, bleeding, perforation requiring surgery, and missed diagnosis. We also had reviewed the need for IV conscious Electronically Signed By: NOY BHAGAT MD 05/07/22 0953 PATIENT NAME: YUSUF CRYSTAL OPERATIVE REPORT DATE OF : 63 REPORT #: [id number] PHYSICIAN: NOY BHAGAT MD PCP: MARCO AU DO REPORT IS CONFIDENTIAL AND NOT TO BE RELEASED WITHOUT AUTHORIZATION [facility] [address] [place], [place] [address] Signed sedation. He had expressed understanding and wished to proceed. PROCEDURE NOTE: Yusuf was taken into our endoscopy suite and placed in the left lateral decubitus position. He was given a total of 4 mg of Versed and 125 mcg of fentanyl to cover the case. He is still on the thin side. A digital rectal exam was performed and this was unremarkable. He had good sphincter tone. No external hemorrhoids. No masses. The adult colonoscope was introduced and advanced all around to his anastomosis in his proximal transverse colon at 110 cm. It is very well healed. No evidence of any obvious recurrent cancer. He had several sutures coming through and we removed two of those with hot biopsy forceps. One bled just a bit, so we put a couple of clips with good results. The scope was then slowly withdrawn. He does have a few diverticula in the sigmoid colon. They are moderate in size, few in number, and scattered about. The rectum was unremarkable. Upon retroflexion of the scope, he really has very little if any internal hemorrhoid tissue. The gas was then suctioned out and the colonoscope removed. Yusuf tolerated the procedure quite well. RECOMMENDATIONS: I will see Yusuf back in my office in 7 to 14 days to review his biopsy results. Noy Bhagat MD ALB/MODL /[id number] cc: MD Noy Hudson MD Dr. Emily Jack Copies: KOSTA VAZQUEZ MD Electronically Signed By: NOY BHAGAT MD 05/07/22 0953 PATIENT NAME: YUSUF CRYSTAL OPERATIVE REPORT DATE OF : 63 REPORT #: [id number] PHYSICIAN: NOY BHAGAT MD PCP: MARCO AU DO REPORT IS CONFIDENTIAL AND NOT TO BE RELEASED WITHOUT AUTHORIZATION [address] [address] Signed NOY BHAGAT MD ~ Electronically Signed By: NOY BHAGAT MD 05/07/22 0953 PATIENT NAME: YUSUF CRYSTAL OPERATIVE REPORT DATE OF : 63 REPORT #: [id number] PHYSICIAN: NOY BHAGAT MD PCP: MARCO AU DO REPORT IS CONFIDENTIAL AND NOT TO BE RELEASED WITHOUT AUTHORIZATION
--- NOTE | 2022-05-07 09:57 | NUR ---
0945: PT BACK TO DS RM 8 FROM PACU VIA STRETCHER. PT DROWSY, AROUSES WITH VERBAL STIMULATION. PT STATES, "I HAVE HAD A LOT GOING ON LATELY, IT FEELS NICE TO REST." PT STATES SPOUSE IS ONLY A FEW MINUTES AWAY AND WILL NEED TO BE CALLED FOR SAFE RIDE HOME ONCE MORE AWAKE. CALL LIGHT WITHIN REACH, ICED WATER AT BEDSIDE.
--- NOTE | 2022-05-07 11:38 | NUR ---
1045: PATIENT MORE AWAKE AND STATES READY TO GET DRESSED AND GO HOME. VS CHECKED. PATIENT MOVED TO SIT ON SIDE OF BED. THEN STOOD AT BEDSIDE. PATIENT DENIED DIZZINESS. PATIENT GETTING DRESSED. 1100: PATIENT DRESSED. DISCHARGE INSTRUCTIONS GIVEN. IV DC'D WNL. TIP INTACT. DRESSING APPLIED. PATIENT DISCHARGED TO HOME VIA WHEELCHAIR WITH .
--- NOTE | 2022-05-09 16:56 | PATH ---
[facility] [address] [place], [place] [address] Signed SPECIMEN(S): A ILEOCOLONIC ANASTAMOSIS BIOPSIES SPECIMEN SOURCE: A. ILEOCOLONIC ANASTAMOSIS BIOPSIES CLINICAL HISTORY: Personal history of colon cancer status post colectomy, diverticulosis, sessile colonic polyp, internal hemorrhoid. Postop diagnosis: Diverticulosis FINAL PATHOLOGIC DIAGNOSIS: Ileocolonic anastomosis biopsies: - Fragment of foreign material consistent with suture, with focal calcification and fibrosis. - Negative for epithelium. JVR:em:C2NR MICROSCOPIC EXAMINATION: Histologic sections of all submitted blocks are examined by light microscopy. These findings, together with the gross examination, support the pathologic diagnosis. GROSS DESCRIPTION: The specimen, labeled and designated "Chava Barton, #1, " and designated on the requisition "ileocolic anastomosis biopsy," is received in formalin and consists of two mccracken soft tissue fragments that measure 0.3 and 0.5 cm in greatest dimension. Attached to the tissue fragments is mccracken possible suture material. The specimen is entirely submitted in (A1). FB (under the direct supervision of a pathologist) The Gross Description was prepared using a voice recognition system. The report was reviewed for accuracy; however, sound-alike word errors, addition and/or deletions may occur. If there is any question about this report, please contact Client Services. PERFORMING LABORATORY: The technical component was performed by [employer], [address] [place] [id number] (CLIA# [id number]). The professional interpretation was performed by [facility], [facility], [address] [place] [address] (CLIA#: [id number]). Diagnostician: Fredy Hackett MD Pathologist PATIENT NAME: YUSUF BARTON PATHOLOGY DATE OF : 63 REPORT #: [id number] PHYSICIAN: [facility] PCP: MARCO AU DO REPORT IS CONFIDENTIAL AND NOT TO BE RELEASED WITHOUT AUTHORIZATION [address] [address] Signed Electronically Signed 05/09/2022 Copies: ~ PATIENT NAME: YUSUF BARTON PATHOLOGY DATE OF : 63 REPORT #: [id number] PHYSICIAN: [facility] PCP: MARCO AU DO REPORT IS CONFIDENTIAL AND NOT TO BE RELEASED WITHOUT AUTHORIZATION
== END 2022-05-07 11:00 | disposition home or self-care (01) ==
LOC: DS 07:03
PROVIDERS: ATTEND Colon & Rectal Surgery
PROC: 0DBL8ZX Excision of Transverse Colon, Via Natural or Artificial Opening Endoscopic, Diagnostic (ICD-10-PCS; principal; 2022-05-07 08:15)
DX: K57.30 Diverticulosis of large intestine without perforation or abscess without bleeding (principal); K63.89 Other specified diseases of intestine; Z90.49 Acquired absence of other specified parts of digestive tract; K64.8 Other hemorrhoids; E78.00 Pure hypercholesterolemia, unspecified; M10.9 Gout, unspecified; Z85.038 Personal history of other malignant neoplasm of large intestine; F32.A Depression, unspecified; Z88.5 Allergy status to narcotic agent; Z86.010 Personal history of colon polyps
CPT/HCPCS: 99153; G0500; J2250; J3010; J7121